=== PATIENT | female | born 1950 | race Caucasian/White ===

== ENCOUNTER 2021-11-29 13:10 | Outpatient (CLI) | payer MEDICARE, OTHER, SELFPAY | END 2021-11-29 13:11 | disposition home or self-care (01) | PROVIDERS: PCP Family Medicine; Visit Provider Family Medicine | DX: G89.29 Other chronic pain (principal); M17.0 Bilateral primary osteoarthritis of knee; M21.161 Varus deformity, not elsewhere classified, right knee; M25.561 Pain in right knee | CPT/HCPCS: 64624; J2250; J3010 ==